=== PATIENT | male | born 1990 | race Caucasian/White ===

== ENCOUNTER 2017-06-06 12:16 | Emergency (ER) | payer OTHER ==
[2017-06-06 12:24] VITALS: BP 130/73; PULSE 96; TEMP 98.9; BMI 45.7
--- NOTE | 2017-06-06 13:11 | PDOC ---
History of Present Illness - General Chief Complaint: Sore Throat Stated Complaint: sore throat Time Seen by Provider: 06/06/17 12:31 History Source: Patient, Unavil. due to pt. cond. 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 Patient states that he believes he may picked up an illness while smoking hookah 1 week ago. Complaining of a mild sore throat. No measured fever but does describe subjective chills. Today noticed that his uvula was swollen. Reports nasal congestion with yellow phlegm. And today used a Q-tip in his left ear felt that he had some swelling and pain inside the ear canal. No change in hearing. No cough no nausea no vomiting does have seasonal ALLERGIES no sick contacts sick children no known strep throat exposure no rash Past History - Past Medical History Allergies/Adverse Reactions: Allergies Allergy/AdvReac Type Severity Reaction Status Date / Time No Known Allergies Allergy Verified 06/06/17 12:17 Home Medications: Ambulatory Orders Amoxicillin - [Amoxicillin 500mg Capsule -] 500 mg PO BID #20 capsule 06/06/17 Fluticasone Prop 0.05% Nasal [Flonase -] 1 spray NS BID #1 bot 06/06/17 Neomycin/Polymyxn/Hc [Cortisporin Otic Solution -] 1 drop AD QID #1 bottle 06/06 COPD: No Other medical history: denies - Immunization History Td Vaccination: Yes Immunization Up to Date: Yes - Suicide/Smoking/Psychosocial Hx Smoking Status: Yes Smoking History: Never smoked Number of Cigarettes Smoked Daily: 20 Hx Alcohol Use: Yes Drug/Substance Use Hx: No Substance Use Type: Alcohol Review of Systems - Review of Systems Constitutional: Yes: Chills. No: Diaphoresis, Fever HEENTM: Yes: Ear Pain, Throat Pain, Throat Swelling, Mouth Pain. No: Eye Pain, Blurred Vision Respiratory: No: Cough, Orthopnea, Shortness of Breath Cardiac (ROS): No: Chest Pain ABD/GI: No: Abdominal Distended Integumentary: Yes: Rash. No: Bruising, Change in Color All Other Systems: Reviewed and Negative *Physical Exam - Vital Signs Last Vital Signs Temp Pulse Resp BP Pulse Ox 98.9 F 96 H 18 130/73 99 06/06/17 12:17 06/06/17 12:17 06/06/17 12:17 06/06/17 12:17 06/06/17 12:17 - Physical Exam General Appearance: No: Appropriately Dressed, Apparent Distress HEENT: positive: Normal Voice, Pharynx Normal, Nasal Congestion, Rhinorrhea, TM Erythema (left tm erythematous, mild serous effusion. ear canal erythema. ), Other (uvualar edema, enlargement and erythema.). negative: Tonsillar Exudate, Tonsillar Erythema, Sinus Tenderness Neck: negative: Trachea midline Respiratory/Chest: positive: Lungs Clear, Normal Breath Sounds Cardiovascular: positive: Regular Rhythm, Regular Rate, S1, S2. 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 Likely secondary to sinusitis. However due to enlarged uvula we'll treat for potential strep. We'll give topical eardrops for ear irritation likely secondary to Q-tip use recommend a decongestant and Flonase to help with postnasal drip. *DC/Admit/Observation/Transfer Diagnosis at time of Disposition: Sinusitis, Uvulitis - Discharge Dispostion Disposition: HOME Condition at time of disposition: Improved - Prescriptions Prescriptions: Amoxicillin - [Amoxicillin 500mg Capsule -] 500 mg PO BID #20 capsule Fluticasone Prop 0.05% Nasal [Flonase -] 1 spray NS BID #1 bot Neomycin/Polymyxn/Hc [Cortisporin Otic Solution -] 1 drop AD QID #1 bottle - Referrals - Patient Instructions Printed Discharge Instructions: Sinusitis (Alternative Therapy), Otitis Externa Additional Instructions: Use Flonase intranasally 1 spray daily to help with nasal congestion. He can take Motrin 600 mg every 8 hours as needed for pain. Take amoxicillin 500 mg twice daily 10 days. Use Corticosporin otic eardrops one drop every 6 hours while awake 1 week. Return for any problems or concerns drink plenty of fluids and get plenty of rest follow-up with her primary care doctor call to schedule - Post Discharge Activity
== END 2017-06-06 13:25 | disposition home or self-care (01) ==
LOC: FER 12:16
DX: J32.9 Chronic sinusitis, unspecified (principal); K12.2 Cellulitis and abscess of mouth
CPT/HCPCS: 99281-25